=== PATIENT | male | born 1975 | race Caucasian/White ===

== ENCOUNTER 2017-09-25 15:07 | Inpatient (IN) | payer MEDICAID ==
[~2017-09-25] VITALS: Ht 175.3 cm; Wt 71.4 kg
[~2017-09-25 15:07] MED LIST: BENZ1TAB10 PO; RISP3 PO
[2017-09-25] MEDS ORDERED: CITA10TA68 PO (15:15)
[2017-09-25 15:37] LABS: HEMATOCRIT 43.6 % (41-53); MEAN CORPUSCULAR HEMOGLOBIN 30.6 pg (26.0-34.0); MEAN CORPUSCULAR HGB CONC 34.4 G/dL (31.0-37.0); MEAN CORPUSCULAR VOLUME 89 fL (80-100); PLATELET COUNT (AUTO) 191 K/uL (150-450); RED BLOOD CELL COUNT(AUTO) 4.89 MIL/uL (4.50-5.90); RED CELL DISTRIBUTION WIDTH 14.4 % (11.5-14.5)
[2017-09-25 15:47] LABS: ANION GAP 11 mmol/L (8-16); CALCIUM, TOTAL 8.5 mg/dL (8.8-10.5); CARBON DIOXIDE 28 mmol/L (22-29); CHLORIDE 96 mmol/L (98-107); CREATININE 1.09 mg/dL (0.60-1.30); GLOMERULAR FILTR. RATE CALC > 60 mL/min (>60); GLUCOSE,RANDOM 145 mg/dL (70-110); POTASSIUM 3.8 mmol/L (3.5-5.1); SODIUM SERUM 135 mmol/L (136-145); UREA NITROGEN, BLOOD 21 mg/dL (7-18)
[2017-09-25 15:53] LABS: ALANINE AMINOTRANSFERASE 170 U/L (12-78); ALBUMIN 3.2 g/dL (3.4-5.0); ALKALINE PHOSPHATASE 130 U/L (46-116); ASPARTATE AMINOTRANSFERASE 191 U/L (15-37); BILIRUBIN,TOTAL 0.5 mg/dL (0.1-1.0); TOTAL PROTEIN, SERUM 7.5 g/dL (6.4-8.2)
[2017-09-25 16:55] LABS: BAND NEUTROPHILS % (MANUAL) 31 % (1-5); LYMPHOCYTES % (MANUAL) 6 % (22-44); MONOCYTES % (MANUAL) 4 % (2-9); SEGMENTED NEUTROPHILS % 59 % (40-70)
[2017-09-25 19:12] LABS: AMPHET/METH SCREEN,URINE POSITIVE (NEGATIVE); BARBITURATE SCREEN, URINE NEGATIVE (NEGATIVE); BENZODIAZEPINES SCREEN,URINE NEGATIVE (NEGATIVE); CANNABINOID SCREEN,URINE NEGATIVE (NEGATIVE); COCAINE SCREEN,URINE NEGATIVE (NEGATIVE); METHADONE SCREEN, URINE NEGATIVE (NEGATIVE); OPIATE SCREEN,URINE NEGATIVE (NEGATIVE)
[2017-09-25 19:13] LABS: PHENCYCLIDINE SCREEN,URINE NEGATIVE (NEGATIVE)
[2017-09-25] MEDS ORDERED: DiphenhydrAMINE HCL 50 MG/ML VIAL IM ONE (19:15)
[2017-09-25] MEDS ORDERED: LORazepam 2 MG/ML VIAL IM ONE (19:15)
[2017-09-25] MEDS ORDERED: HALOPERIDOL LACTATE 5 MG/ML VIAL IM ONE (19:15)
[2017-09-25] MEDS ORDERED: DiphenhydrAMINE HCL 25 MG CAPSULE PO ONE (19:45)
[2017-09-25] MEDS ORDERED: LORazepam 2 MG TABLET PO ONE (19:45)
[2017-09-25] MEDS ORDERED: HALOPERIDOL 5 MG TABLET PO ONE (19:45)
[2017-09-25] MEDS ORDERED: ZOLPIDEM TARTRATE 10 MG TABLET PO PRN (20:15)
[2017-09-25] MEDS ORDERED: HALOPERIDOL 5 MG TABLET PO PRN (20:15)
[2017-09-25] MEDS ORDERED: LORazepam 2 MG TABLET PO PRN (20:15)
[2017-09-25 21:47] VITALS: BP 113/61
[2017-09-25] MEDS ORDERED: ONDANSETRON HCL 4 MG TABLET PO PRN (22:15)
[2017-09-25] MEDS ORDERED: BENZOCAINE/MENTHOL LOZENGE MM PRN (22:15)
[2017-09-25] MEDS ORDERED: ACETAMINOPHEN 325 MG TABLET PO PRN (22:15)
[2017-09-25] MEDS ORDERED: INFLUENZA VIRUS VACCINE QVS 2017-18 (3YR+)/PF 60 MCG/0.5 ML SYRINGE IM ONE (22:15)
[2017-09-25] MEDS ORDERED: CloNIDine HCL 0.1 MG TABLET PO PRN (22:15)
[2017-09-25] MEDS ORDERED: ALBUTEROL SULFATE HFA 90 MCG/PUFF 8 GM INHALER IH PRN (22:15)
[2017-09-25] MEDS ORDERED: MAGNESIUM HYDROXIDE SUSPENSION 30 ML UDCUP PO PRN (22:15)
[2017-09-25] MEDS ORDERED: BACITRACIN 28.4 GM OINTMENT TP PRN (22:15)
[2017-09-25] MEDS ORDERED: IBUPROFEN 600 MG TABLET PO PRN (22:15)
[2017-09-25] MEDS ORDERED: PETROLATUM,WHITE 71 GM JELLY TP PRN (22:15)
[2017-09-25] MEDS ORDERED: MAG HYDROX/AL HYDROX/SIMETH ES 30 ML SUSPENSION UDCUP PO PRN (22:15)
[2017-09-25] MEDS ORDERED: LOPERAMIDE HCL 2 MG CAPSULE PO PRN (22:15)
[2017-09-26 00:02] VITALS: BP 134/63
[2017-09-26 08:56] LABS: HEMATOCRIT 40.1 % (41-53); HEMOGLOBIN 13.8 g/dL (13.5-17.5); MEAN CORPUSCULAR HEMOGLOBIN 30.2 pg (26.0-34.0); MEAN CORPUSCULAR HGB CONC 34.3 G/dL (31.0-37.0); MEAN CORPUSCULAR VOLUME 88 fL (80-100); PLATELET COUNT (AUTO) 132 K/uL (150-450); RED BLOOD CELL COUNT(AUTO) 4.55 MIL/uL (4.50-5.90); RED CELL DISTRIBUTION WIDTH 14.2 % (11.5-14.5)
[2017-09-26] MEDS ORDERED: CITALOPRAM HYDROBROMIDE 10 MG TABLET PO SCH (09:00)
[2017-09-26 09:14] LABS: CHOL/HDL RATIO 3.5 (4.2-7.3)
[2017-09-26 09:20] LABS: BAND NEUTROPHILS % (MANUAL) 36 % (1-5); LYMPHOCYTES % (MANUAL) 7 % (22-44); MONOCYTES % (MANUAL) 1 % (2-9); SEGMENTED NEUTROPHILS % 56 % (40-70)
[2017-09-26 09:25] LABS: LACTIC ACID 0.6 mmol/L (0.4-2.0)
[2017-09-26] MEDS ORDERED: BENZTROPINE MESYLATE 1 MG TABLET PO SCH (21:00)
[2017-09-26] MEDS ORDERED: RisperiDONE 3 MG TABLET PO SCH (21:00)
== END 2017-09-26 09:24 | disposition home or self-care (01) | DRG 750 ==
LOC: EMS 15:08 → B2S 20:27
PROVIDERS: ADMIT Psychiatry & Neurology Psychiatry; ATTEND Psychiatry & Neurology Psychiatry
DX: F20.9 Schizophrenia, unspecified (principal); F31.9 Bipolar disorder, unspecified; Z79.899 Other long term (current) drug therapy
CPT/HCPCS: 83605; 87081; G0480; J1200; J1630; J2060

== ENCOUNTER 2017-10-18 00:06 | Inpatient (IN) | payer MEDICAID ==
[~2017-10-18] VITALS: Ht 175.3 cm; Wt 68.0 kg
[2017-10-18 00:33] LABS: BASOPHILS % (AUTO) 0.4 % (0.0-2.0); EOSINOPHILS % (AUTO) 0.3 % (1.0-6.0); HEMATOCRIT 41.5 % (41-53); HEMOGLOBIN 14.5 g/dL (13.5-17.5); LYMPHOCYTES # (AUTO) 1.5 K/uL (1.0-4.8); LYMPHOCYTES % (AUTO) 11.7 % (22.0-44.0); MEAN CORPUSCULAR HEMOGLOBIN 30.3 pg (26.0-34.0); MEAN CORPUSCULAR HGB CONC 34.9 G/dL (31.0-37.0); MEAN CORPUSCULAR VOLUME 87 fL (80-100); MONOCYTES # (AUTO) 1.1 K/uL (0.1-1.0); MONOCYTES % (AUTO) 8.5 % (2.0-9.0); NEUTROPHILS # (AUTO) 10.1 K/uL (1.8-7.7); NEUTROPHILS % (AUTO) 79.1 % (40.0-70.0); PLATELET COUNT (AUTO) 425 K/uL (150-450); RED BLOOD CELL COUNT(AUTO) 4.79 MIL/uL (4.50-5.90); RED CELL DISTRIBUTION WIDTH 14.7 % (11.5-14.5)
[2017-10-18 00:38] LABS: ANION GAP 16 mmol/L (8-16); CALCIUM, TOTAL 9.7 mg/dL (8.8-10.5); CARBON DIOXIDE 25 mmol/L (22-29); CHLORIDE 97 mmol/L (98-107); CREATININE 1.23 mg/dL (0.60-1.30); GLOMERULAR FILTR. RATE CALC > 60 mL/min (>60); GLUCOSE,RANDOM 102 mg/dL (70-110); POTASSIUM 3.7 mmol/L (3.5-5.1); SODIUM SERUM 138 mmol/L (136-145); UREA NITROGEN, BLOOD 27 mg/dL (7-18)
[2017-10-18 00:44] LABS: ALANINE AMINOTRANSFERASE 57 U/L (12-78); ALBUMIN 4.1 g/dL (3.4-5.0); ALKALINE PHOSPHATASE 154 U/L (46-116); ASPARTATE AMINOTRANSFERASE 163 U/L (15-37)
[2017-10-18] MEDS ORDERED: ZOLPIDEM TARTRATE 10 MG TABLET PO PRN (02:00)
[2017-10-18] MEDS ORDERED: HALOPERIDOL 5 MG TABLET PO PRN (02:00)
[2017-10-18] MEDS ORDERED: LORazepam 2 MG TABLET PO PRN (02:00)
[2017-10-18] MEDS ORDERED: DiphenhydrAMINE HCL 50 MG/ML VIAL IM ONE (02:00)
[2017-10-18] MEDS ORDERED: HALOPERIDOL LACTATE 5 MG/ML VIAL IM ONE (02:00)
[2017-10-18] MEDS ORDERED: LORazepam 2 MG/ML VIAL IM ONE (02:00)
[2017-10-18 05:33] VITALS: BP 100/57
[2017-10-18] MEDS ORDERED: MAGNESIUM HYDROXIDE SUSPENSION 30 ML UDCUP PO PRN (09:30)
[2017-10-18] MEDS ORDERED: ALBUTEROL SULFATE HFA 90 MCG/PUFF 8 GM INHALER IH PRN (09:30)
[2017-10-18] MEDS ORDERED: BACITRACIN 28.4 GM OINTMENT TP PRN (09:30)
[2017-10-18] MEDS ORDERED: PETROLATUM,WHITE 71 GM JELLY TP PRN (09:30)
[2017-10-18] MEDS ORDERED: IBUPROFEN 600 MG TABLET PO PRN (09:30)
[2017-10-18] MEDS ORDERED: BENZOCAINE/MENTHOL LOZENGE MM PRN (09:30)
[2017-10-18] MEDS ORDERED: CloNIDine HCL 0.1 MG TABLET PO PRN (09:30)
[2017-10-18] MEDS ORDERED: LOPERAMIDE HCL 2 MG CAPSULE PO PRN (09:30)
[2017-10-18] MEDS ORDERED: ONDANSETRON HCL 4 MG TABLET PO PRN (09:30)
[2017-10-18] MEDS ORDERED: MAG HYDROX/AL HYDROX/SIMETH ES 30 ML SUSPENSION UDCUP PO PRN (09:30)
[2017-10-18] MEDS ORDERED: ACETAMINOPHEN 325 MG TABLET PO PRN (09:30)
[2017-10-18 10:00] VITALS: BP 114/54
[2017-10-18] MEDS: BENZTROPINE MESYLATE 1 MG TABLET PO SCH (20:45)
[2017-10-18] MEDS: RisperiDONE 3 MG TABLET PO SCH (20:45)
[2017-10-18 21:06] VITALS: BP 126/76
[2017-10-19 06:42] LABS: CHOL/HDL RATIO 3.1 (4.2-7.3)
[2017-10-19 08:24] VITALS: BP 116/74
[2017-10-19] MEDS: CITALOPRAM HYDROBROMIDE 10 MG TABLET PO SCH (10:15)
[2017-10-19] MEDS: RisperiDONE 3 MG TABLET PO SCH (20:00)
[2017-10-19] MEDS: BENZTROPINE MESYLATE 1 MG TABLET PO SCH (20:01)
[2017-10-19 20:19] VITALS: BP 112/75
[2017-10-20 08:05] VITALS: BP 125/79
[2017-10-20] MEDS: CITALOPRAM HYDROBROMIDE 10 MG TABLET PO SCH (10:51)
[2017-10-20] MEDS: RisperiDONE 3 MG TABLET PO SCH (20:22)
[2017-10-20] MEDS: BENZTROPINE MESYLATE 1 MG TABLET PO SCH (20:23)
[2017-10-20 21:29] VITALS: BP 110/78
[2017-10-21 08:05] VITALS: BP 116/88
[2017-10-21] MEDS: CITALOPRAM HYDROBROMIDE 10 MG TABLET PO SCH (10:29)
[2017-10-21] MEDS ORDERED: CITA10TA68 PO (13:50)
[2017-10-21] MEDS ORDERED: BENZ1TAB10 PO (13:50)
[2017-10-21] MEDS ORDERED: RISP3 PO (13:51)
== END 2017-10-21 15:00 | disposition home or self-care (01) | DRG 750 ==
LOC: EMS 00:07 → 3EI 04:30
PROVIDERS: ADMIT Psychiatry & Neurology Psychiatry; ATTEND Psychiatry & Neurology Psychiatry
DX: F20.0 Paranoid schizophrenia (principal); R74.0 Nonspecific elevation of levels of transaminase and lactic acid dehydrogenase [LDH]; F32.9 Major depressive disorder, single episode, unspecified; Z59.0 Homelessness; G47.00 Insomnia, unspecified; F17.200 Nicotine dependence, unspecified, uncomplicated; F15.10 Other stimulant abuse, uncomplicated; R03.0 Elevated blood-pressure reading, without diagnosis of hypertension; D72.829 Elevated white blood cell count, unspecified; Z71.6 Tobacco abuse counseling; Z71.51 Drug abuse counseling and surveillance of drug abuser
CPT/HCPCS: 87081; 96372; 99285; G0480; J1200; J1630; J2060

== ENCOUNTER 2017-11-13 22:39 | Emergency (ER) | payer MEDICAID ==
[~2017-11-13 22:39] MED LIST changes: +DSS100 PO; +OMEP20 PO; +RISP2 PO; -RISP3 PO
== END 2017-11-14 00:56 | disposition left against medical advice (07) ==
LOC: EMS 22:40
DX: R00.0 Tachycardia, unspecified (principal); Z53.21 Procedure and treatment not carried out due to patient leaving prior to being seen by health care provider

== ENCOUNTER 2017-11-14 03:26 | Emergency (ER) | payer MEDICAID ==
[~2017-11-14] VITALS: Ht 175.3 cm; Wt 68.7 kg
[2017-11-14] MEDS ORDERED: MUPIROCIN CALCIUM 2% 22 GM OINTMENT TP ONE (04:15)
[2017-11-14] MEDS ORDERED: HALOPERIDOL LACTATE 5 MG/ML VIAL IM ONE (04:15)
[2017-11-14] MEDS ORDERED: LORazepam 2 MG/ML VIAL IM ONE (04:15)
[2017-11-14] MEDS ORDERED: DiphenhydrAMINE HCL 50 MG/ML VIAL IM ONE (04:15)
[2017-11-14 05:34] LABS: BASOPHILS % (AUTO) 0.5 % (0.0-2.0); EOSINOPHILS % (AUTO) 0 % (1.0-6.0); HEMATOCRIT 38.5 % (41-53); HEMOGLOBIN 13.3 g/dL (13.5-17.5); LYMPHOCYTES # (AUTO) 1.5 K/uL (1.0-4.8); LYMPHOCYTES % (AUTO) 8.7 % (22.0-44.0); MEAN CORPUSCULAR HEMOGLOBIN 29.9 pg (26.0-34.0); MEAN CORPUSCULAR HGB CONC 34.6 G/dL (31.0-37.0); MEAN CORPUSCULAR VOLUME 87 fL (80-100); MONOCYTES # (AUTO) 1.3 K/uL (0.1-1.0); MONOCYTES % (AUTO) 7.4 % (2.0-9.0); NEUTROPHILS # (AUTO) 14.5 K/uL (1.8-7.7); NEUTROPHILS % (AUTO) 83.4 % (40.0-70.0); PLATELET COUNT (AUTO) 387 K/uL (150-450); RED BLOOD CELL COUNT(AUTO) 4.45 MIL/uL (4.50-5.90); RED CELL DISTRIBUTION WIDTH 15.2 % (11.5-14.5)
[2017-11-14 05:41] LABS: ANION GAP 16 mmol/L (8-16); CALCIUM, TOTAL 9.3 mg/dL (8.8-10.5); CARBON DIOXIDE 20 mmol/L (22-29); CHLORIDE 101 mmol/L (98-107); CREATININE 1.91 mg/dL (0.60-1.30); GLOMERULAR FILTR. RATE CALC 39 mL/min (>60); GLUCOSE,RANDOM 79 mg/dL (70-110); POTASSIUM 3.6 mmol/L (3.5-5.1); SODIUM SERUM 137 mmol/L (136-145); UREA NITROGEN, BLOOD 37 mg/dL (7-18)
[2017-11-14 05:51] LABS: ALANINE AMINOTRANSFERASE 26 U/L (12-78); ALBUMIN 4.2 g/dL (3.4-5.0); ALKALINE PHOSPHATASE 73 U/L (46-116); ASPARTATE AMINOTRANSFERASE 47 U/L (15-37); BILIRUBIN,TOTAL 0.7 mg/dL (0.1-1.0); TOTAL PROTEIN, SERUM 7.9 g/dL (6.4-8.2)
[2017-11-14 08:13] VITALS: BP 102/61
== END 2017-11-14 09:09 | disposition home or self-care (01) ==
LOC: EMS 03:27
DX: F29 Unspecified psychosis not due to a substance or known physiological condition (principal); N19 Unspecified kidney failure; F22 Delusional disorders; F31.9 Bipolar disorder, unspecified; F20.9 Schizophrenia, unspecified; F15.90 Other stimulant use, unspecified, uncomplicated; Z59.0 Homelessness
CPT/HCPCS: 36415; 80053; 85025; 96372; 99285; G0480; J1200; J1630; J2060

== ENCOUNTER 2017-12-26 08:52 | Inpatient (IN) | payer MEDICAID ==
[~2017-12-26] VITALS: Ht 177.8 cm; Wt 63.5 kg
[2017-12-26] MEDS ORDERED: HALOPERIDOL LACTATE 5 MG/ML VIAL IM ONE (09:15)
[2017-12-26] MEDS ORDERED: DiphenhydrAMINE HCL 50 MG/ML VIAL IM ONE (09:15)
[2017-12-26] MEDS ORDERED: LORazepam 2 MG/ML VIAL IM ONE (09:15)
[2017-12-26 09:32] LABS: BASOPHILS % (AUTO) 1.4 % (0.0-2.0); EOSINOPHILS % (AUTO) 0.7 % (1.0-6.0); HEMOGLOBIN 13.3 g/dL (13.5-17.5); LYMPHOCYTES # (AUTO) 1.3 K/uL (1.0-4.8); MEAN CORPUSCULAR HEMOGLOBIN 30.1 pg (26.0-34.0); MEAN CORPUSCULAR HGB CONC 34.1 G/dL (31.0-37.0); MEAN CORPUSCULAR VOLUME 88 fL (80-100); MONOCYTES # (AUTO) 0.6 K/uL (0.1-1.0); MONOCYTES % (AUTO) 6.2 % (2.0-9.0); NEUTROPHILS % (AUTO) 78.7 % (40.0-70.0); PLATELET COUNT (AUTO) 415 K/uL (150-450); RED BLOOD CELL COUNT(AUTO) 4.42 MIL/uL (4.50-5.90); RED CELL DISTRIBUTION WIDTH 15.9 % (11.5-14.5)
[2017-12-26 09:48] LABS: ANION GAP 8 mmol/L (8-16); CALCIUM, TOTAL 9.1 mg/dL (8.8-10.5); CARBON DIOXIDE 29 mmol/L (22-29); CHLORIDE 100 mmol/L (98-107); CREATININE 1.04 mg/dL (0.60-1.30); GLOMERULAR FILTR. RATE CALC > 60 mL/min (>60); GLUCOSE,RANDOM 82 mg/dL (70-110); POTASSIUM 4.3 mmol/L (3.5-5.1); SODIUM SERUM 137 mmol/L (136-145); UREA NITROGEN, BLOOD 28 mg/dL (7-18)
[2017-12-26 09:54] LABS: ALANINE AMINOTRANSFERASE 33 U/L (12-78); ALBUMIN 3.9 g/dL (3.4-5.0); ALKALINE PHOSPHATASE 89 U/L (46-116); ASPARTATE AMINOTRANSFERASE 37 U/L (15-37); BILIRUBIN,TOTAL 0.5 mg/dL (0.1-1.0); TOTAL PROTEIN, SERUM 7.7 g/dL (6.4-8.2)
[2017-12-26] MEDS ORDERED: LORazepam 2 MG TABLET PO PRN (10:15)
[2017-12-26] MEDS ORDERED: ZOLPIDEM TARTRATE 10 MG TABLET PO PRN ×2 (10:15→12:00)
[2017-12-26] MEDS ORDERED: HALOPERIDOL 5 MG TABLET PO PRN (10:15)
[2017-12-26 11:29] LABS: AMPHET/METH SCREEN,URINE POSITIVE (NEGATIVE); BARBITURATE SCREEN, URINE NEGATIVE (NEGATIVE); BENZODIAZEPINES SCREEN,URINE NEGATIVE (NEGATIVE); CANNABINOID SCREEN,URINE NEGATIVE (NEGATIVE); COCAINE SCREEN,URINE NEGATIVE (NEGATIVE); METHADONE SCREEN, URINE NEGATIVE (NEGATIVE); OPIATE SCREEN,URINE NEGATIVE (NEGATIVE); PHENCYCLIDINE SCREEN,URINE NEGATIVE (NEGATIVE)
[2017-12-26 16:00] VITALS: BP 112/68
[2017-12-26] MEDS: RisperiDONE 2 MG TABLET PO SCH (16:20)
[2017-12-26] MEDS: BENZTROPINE MESYLATE 1 MG TABLET PO SCH (16:20)
[2017-12-26] MEDS ORDERED: ONDANSETRON HCL 4 MG TABLET PO PRN (18:15)
[2017-12-26] MEDS ORDERED: CloNIDine HCL 0.1 MG TABLET PO PRN (18:15)
[2017-12-26] MEDS ORDERED: MAG HYDROX/AL HYDROX/SIMETH ES 30 ML SUSPENSION UDCUP PO PRN (18:15)
[2017-12-26] MEDS ORDERED: PETROLATUM,WHITE 71 GM JELLY TP PRN (18:15)
[2017-12-26] MEDS ORDERED: MAGNESIUM HYDROXIDE SUSPENSION 30 ML UDCUP PO PRN (18:15)
[2017-12-26] MEDS ORDERED: IBUPROFEN 600 MG TABLET PO PRN (18:15)
[2017-12-26] MEDS ORDERED: BENZOCAINE/MENTHOL LOZENGE MM PRN (18:15)
[2017-12-26] MEDS ORDERED: ACETAMINOPHEN 325 MG TABLET PO PRN (18:15)
[2017-12-26] MEDS ORDERED: ALBUTEROL SULFATE HFA 90 MCG/PUFF 8 GM INHALER IH PRN (18:15)
[2017-12-26] MEDS ORDERED: LOPERAMIDE HCL 2 MG CAPSULE PO PRN (18:15)
[2017-12-26] MEDS ORDERED: BACITRACIN 28.4 GM OINTMENT TP PRN (18:15)
[2017-12-27 06:22] VITALS: BP 109/62
[2017-12-27 08:00] LABS: % IRON SATURATION 16.3 % (30-44)
[2017-12-27 08:10] VITALS: BP 113/58
[2017-12-27 08:13] LABS: CHOL/HDL RATIO 2.2 (4.2-7.3); THYROID STIMULATING HORMONE 0.47 uIU/mL (0.36-3.74)
[2017-12-27] MEDS: OMEPRAZOLE 20 MG CAPSULE PO SCH (08:30)
[2017-12-27] MEDS: DOCUSATE SODIUM 100 MG CAPSULE PO SCH (08:30)
[2017-12-27] MEDS: BENZTROPINE MESYLATE 1 MG TABLET PO SCH ×2 (08:30→16:34)
[2017-12-27] MEDS: RisperiDONE 2 MG TABLET PO SCH ×2 (08:30→16:34)
[2017-12-27 16:00] VITALS: BP 124/69
[2017-12-28 06:26] VITALS: BP 124/67
[2017-12-28 08:11] VITALS: BP 110/60
[2017-12-28] MEDS: BENZTROPINE MESYLATE 1 MG TABLET PO SCH ×2 (09:40→16:23)
[2017-12-28] MEDS: OMEPRAZOLE 20 MG CAPSULE PO SCH (09:40)
[2017-12-28] MEDS: RisperiDONE 2 MG TABLET PO SCH ×2 (09:40→16:23)
[2017-12-28] MEDS: DOCUSATE SODIUM 100 MG CAPSULE PO SCH (09:40)
[2017-12-28 16:00] VITALS: BP 112/78
[2017-12-28] MEDS: FERROUS SULFATE 325 MG EC TABLET PO SCH (16:23)
[2017-12-28] MEDS: HALOPERIDOL 5 MG TABLET PO PRN (16:23)
[2017-12-28] MEDS: LORazepam 2 MG TABLET PO PRN (16:23)
[2017-12-29 06:28] VITALS: BP 103/69
[2017-12-29] MEDS: FERROUS SULFATE 325 MG EC TABLET PO SCH ×2 (06:28→16:53)
[2017-12-29 08:00] VITALS: BP 110/67
[2017-12-29] MEDS: RisperiDONE 2 MG TABLET PO SCH ×2 (09:15→16:53)
[2017-12-29] MEDS: OMEPRAZOLE 20 MG CAPSULE PO SCH (09:15)
[2017-12-29] MEDS: HALOPERIDOL 5 MG TABLET PO PRN ×2 (09:15→16:53)
[2017-12-29] MEDS: DOCUSATE SODIUM 100 MG CAPSULE PO SCH (09:16)
[2017-12-29] MEDS: LORazepam 2 MG TABLET PO PRN ×2 (09:16→16:53)
[2017-12-29] MEDS: BENZTROPINE MESYLATE 1 MG TABLET PO SCH ×2 (09:16→16:53)
[2017-12-29 16:00] VITALS: BP 126/88
[2017-12-30 03:19] VITALS: BP 122/76
[2017-12-30] MEDS: FERROUS SULFATE 325 MG EC TABLET PO SCH ×2 (06:36→16:26)
[2017-12-30 08:31] VITALS: BP 117/59
[2017-12-30] MEDS: DOCUSATE SODIUM 100 MG CAPSULE PO SCH (09:30)
[2017-12-30] MEDS: RisperiDONE 2 MG TABLET PO SCH ×2 (09:30→16:25)
[2017-12-30] MEDS: CHOLECALCIFEROL (VIT D3) 1,000 UNITS TABLET PO SCH (09:30)
[2017-12-30] MEDS: BENZTROPINE MESYLATE 1 MG TABLET PO SCH ×2 (09:30→16:26)
[2017-12-30] MEDS: OMEPRAZOLE 20 MG CAPSULE PO SCH (09:30)
[2017-12-30 16:00] VITALS: BP 135/89
[2017-12-30] MEDS: HALOPERIDOL 5 MG TABLET PO PRN (16:26)
[2017-12-30] MEDS: LORazepam 2 MG TABLET PO PRN (16:26)
[2017-12-31] MEDS: FERROUS SULFATE 325 MG EC TABLET PO SCH (06:24)
[2017-12-31 08:26] VITALS: BP 127/81
[2017-12-31] MEDS ORDERED: RISP2 PO (09:01)
[2017-12-31] MEDS ORDERED: BENZ1TAB10 PO (09:01)
[2017-12-31] MEDS: OMEPRAZOLE 20 MG CAPSULE PO SCH (09:14)
[2017-12-31] MEDS: BENZTROPINE MESYLATE 1 MG TABLET PO SCH (09:14)
[2017-12-31] MEDS: DOCUSATE SODIUM 100 MG CAPSULE PO SCH (09:14)
[2017-12-31] MEDS: CHOLECALCIFEROL (VIT D3) 1,000 UNITS TABLET PO SCH (09:14)
[2017-12-31] MEDS: RisperiDONE 2 MG TABLET PO SCH (09:14)
[2017-12-31] MEDS ORDERED: FERR-89 PO (09:54)
[2017-12-31] MEDS ORDERED: VITAD1000 PO (09:54)
[2017-12-31] MEDS ORDERED: OMEP20 PO (09:55)
[2017-12-31] MEDS ORDERED: DSS100 PO (09:55)
== END 2017-12-31 13:15 | disposition home or self-care (01) | DRG 750 ==
LOC: EMS 08:53 → B3A 11:04
PROVIDERS: ADMIT Psychiatry & Neurology Child & Adolescent Psychiatry; ATTEND Psychiatry & Neurology Psychiatry
DX: F25.0 Schizoaffective disorder, bipolar type (principal); F15.20 Other stimulant dependence, uncomplicated; F17.210 Nicotine dependence, cigarettes, uncomplicated; F41.9 Anxiety disorder, unspecified; D64.9 Anemia, unspecified; E55.9 Vitamin D deficiency, unspecified; G47.00 Insomnia, unspecified; Z59.0 Homelessness; Z78.1 Physical restraint status; Z91.19 Patient's noncompliance with other medical treatment and regimen; Z72.89 Other problems related to lifestyle; Z79.899 Other long term (current) drug therapy; Z71.6 Tobacco abuse counseling; Z71.41 Alcohol abuse counseling and surveillance of alcoholic; Z71.51 Drug abuse counseling and surveillance of drug abuser
CPT/HCPCS: 82306; 83540; 83550; 84443; 96372; 99291; G0480; J1200; J1630; J2060

== ENCOUNTER 2019-09-30 17:05 | Emergency (ER) | payer MEDICAID ==
[~2019-09-30] VITALS: Ht 175.3 cm; Wt 63.6 kg
[~2019-09-30 17:05] MED LIST changes: +CHOL100018 PO; -DSS100 PO; +FERR-89 PO; +MULT-1204 PO; -OMEP20 PO
[2019-09-30 19:22] LABS: BASOPHILS % (AUTO) 0.2 % (0.0-2.0); EOSINOPHILS % (AUTO) 0.2 % (1.0-6.0); HEMATOCRIT 44.5 % (41-53); HEMOGLOBIN 15.1 g/dL (13.5-17.5); LYMPHOCYTES % (AUTO) 7.8 % (22.0-44.0); MEAN CORPUSCULAR HEMOGLOBIN 31.2 pg (26.0-34.0); MEAN CORPUSCULAR HGB CONC 33.9 G/dL (31.0-37.0); MEAN CORPUSCULAR VOLUME 92 fL (80-100); MONOCYTES # (AUTO) 0.7 K/uL (0.1-1.0); MONOCYTES % (AUTO) 5.5 % (2.0-9.0); NEUTROPHILS # (AUTO) 11.1 K/uL (1.8-7.7); PLATELET COUNT (AUTO) 408 K/uL (150-450); RED BLOOD CELL COUNT(AUTO) 4.83 MIL/uL (4.50-5.90); RED CELL DISTRIBUTION WIDTH 13.9 % (11.5-14.5)
[2019-09-30 19:27] LABS: NEUTROPHILS % (AUTO) 86.3 % (40.0-70.0)
[2019-09-30 19:34] LABS: ANION GAP 7 mmol/L (8-16); CALCIUM, TOTAL 9.4 mg/dL (8.8-10.5); CARBON DIOXIDE 29 mmol/L (22-29); CHLORIDE 101 mmol/L (98-107); CREATININE 1.07 mg/dL (0.60-1.30); GLOMERULAR FILTR. RATE CALC > 60 mL/min (>60); GLUCOSE,RANDOM 85 mg/dL (70-110); POTASSIUM 4.4 mmol/L (3.5-5.1); SODIUM SERUM 137 mmol/L (136-145); UREA NITROGEN, BLOOD 29 mg/dL (7-18)
[2019-09-30 19:41] LABS: ALANINE AMINOTRANSFERASE 28 U/L (12-78); ALBUMIN 4.4 g/dL (3.4-5.0); ALKALINE PHOSPHATASE 105 U/L (46-116); ASPARTATE AMINOTRANSFERASE 32 U/L (15-37); BILIRUBIN,TOTAL 1.1 mg/dL (0.1-1.0); TOTAL PROTEIN, SERUM 8.3 g/dL (6.4-8.2)
[2019-09-30 20:28] VITALS: BP 139/78
[2019-09-30 20:30] LABS: AMPHET/METH SCREEN,URINE POSITIVE (NEGATIVE); BARBITURATE SCREEN, URINE NEGATIVE (NEGATIVE); BENZODIAZEPINES SCREEN,URINE NEGATIVE (NEGATIVE); CANNABINOID SCREEN,URINE NEGATIVE (NEGATIVE); COCAINE SCREEN,URINE NEGATIVE (NEGATIVE); METHADONE SCREEN, URINE NEGATIVE (NEGATIVE); OPIATE SCREEN,URINE NEGATIVE (NEGATIVE)
[2019-09-30 20:43] LABS: PHENCYCLIDINE SCREEN,URINE NEGATIVE (NEGATIVE)
[2019-09-30] MEDS ORDERED: OLANZapine 5 MG TABLET PO ONE (21:00)
== END 2019-09-30 21:11 | disposition home or self-care (01) ==
LOC: EMS 17:08
DX: F15.10 Other stimulant abuse, uncomplicated (principal); F31.9 Bipolar disorder, unspecified; F20.9 Schizophrenia, unspecified; F17.210 Nicotine dependence, cigarettes, uncomplicated; Z59.0 Homelessness; Z79.899 Other long term (current) drug therapy
CPT/HCPCS: 36415; 80053; 80307; 85025; 99285; 99406; G0480

== ENCOUNTER 2019-12-11 12:57 | Emergency (ER) | payer MEDICAID ==
[~2019-12-11] VITALS: Ht 185.4 cm; Wt 72.7 kg
[~2019-12-11 12:57] MED LIST changes: -RISP2 PO; +RISP2TAB23 PO
[2019-12-11 14:29] LABS: BASOPHILS % (AUTO) 0.6 % (0.0-2.0); EOSINOPHILS % (AUTO) 3.5 % (1.0-6.0); HEMATOCRIT 38.5 % (41-53); HEMOGLOBIN 13.1 g/dL (13.5-17.5); LYMPHOCYTES # (AUTO) 1.4 K/uL (1.0-4.8); MEAN CORPUSCULAR HEMOGLOBIN 30.9 pg (26.0-34.0); MEAN CORPUSCULAR VOLUME 91 fL (80-100); MONOCYTES # (AUTO) 0.4 K/uL (0.1-1.0); NEUTROPHILS # (AUTO) 3.5 K/uL (1.8-7.7); NEUTROPHILS % (AUTO) 63.9 % (40.0-70.0); PLATELET COUNT (AUTO) 344 K/uL (150-450); RED BLOOD CELL COUNT(AUTO) 4.24 MIL/uL (4.50-5.90)
[2019-12-11 14:41] LABS: ANION GAP 7 mmol/L (8-16); CALCIUM, TOTAL 8.9 mg/dL (8.8-10.5); CARBON DIOXIDE 29 mmol/L (22-29); CHLORIDE 104 mmol/L (98-107); CREATININE 0.97 mg/dL (0.60-1.30); GLOMERULAR FILTR. RATE CALC > 60 mL/min (>60); GLUCOSE,RANDOM 91 mg/dL (70-110); POTASSIUM 3.9 mmol/L (3.5-5.1); SODIUM SERUM 140 mmol/L (136-145); UREA NITROGEN, BLOOD 23 mg/dL (7-18)
[2019-12-11 14:46] LABS: AMMONIA 33 umol/L (11-32)
[2019-12-11 14:47] LABS: B-TYPE NATRIURETIC PEPTIDE 10 pg/mL (0-100); TROPONIN I < 0.02 ng/mL (0.00-0.05)
[2019-12-11 14:50] LABS: PROTHROMBIN TIME 10.3 SEC (9.4-11.6)
[2019-12-11 15:05] LABS: ALANINE AMINOTRANSFERASE 28 U/L (12-78); ALBUMIN 3.7 g/dL (3.4-5.0); ALKALINE PHOSPHATASE 76 U/L (46-116); ASPARTATE AMINOTRANSFERASE 24 U/L (15-37); BILIRUBIN,TOTAL 0.5 mg/dL (0.1-1.0); CREATINE KINASE, TOTAL ONLY 415 U/L (39-308); FREE T4 (FREE THYROXINE) 1.12 ng/dL (0.76-1.46); THYROID STIMULATING HORMONE 1.41 uIU/mL (0.36-3.74); TOTAL PROTEIN, SERUM 7.2 g/dL (6.4-8.2)
[2019-12-11] MEDS ORDERED: SODIUM CHLORIDE 0.9% 1,000 ML IV ONE (15:45)
[2019-12-11 16:56] LABS: APPEARANCE,URINE CLEAR (CLEAR); BILIRUBIN,URINE NEGATIVE (NEGATIVE); GLUCOSE, URINE (UA) NEGATIVE (NEGATIVE); KETONES,URINE NEGATIVE (NEGATIVE); LEUKOCYTE ESTERASE ,URINE NEGATIVE (NEGATIVE); NITRATE,URINE NEGATIVE (NEGATIVE); OCCULT BLOOD,URINE NEGATIVE (NEGATIVE); PROTEIN,URINE NEGATIVE (NEGATIVE)
[2019-12-11 17:02] LABS: AMPHET/METH SCREEN,URINE POSITIVE (NEGATIVE); BARBITURATE SCREEN, URINE NEGATIVE (NEGATIVE); BENZODIAZEPINES SCREEN,URINE POSITIVE (NEGATIVE); CANNABINOID SCREEN,URINE NEGATIVE (NEGATIVE); COCAINE SCREEN,URINE NEGATIVE (NEGATIVE); METHADONE SCREEN, URINE NEGATIVE (NEGATIVE); OPIATE SCREEN,URINE NEGATIVE (NEGATIVE); PHENCYCLIDINE SCREEN,URINE NEGATIVE (NEGATIVE)
[2019-12-11 17:57] VITALS: BP 126/72
== END 2019-12-11 17:59 | disposition home or self-care (01) ==
LOC: EMS 12:58
DX: F29 Unspecified psychosis not due to a substance or known physiological condition (principal); F15.10 Other stimulant abuse, uncomplicated; R79.89 Other specified abnormal findings of blood chemistry; F31.9 Bipolar disorder, unspecified; F20.9 Schizophrenia, unspecified; F17.210 Nicotine dependence, cigarettes, uncomplicated; Z59.0 Homelessness
CPT/HCPCS: 36415; 71045; 80053; 80307; 81003; 82140; 82550; 83880; 84439; 84443; 84484; 85025; 85610; 85730; 93005; 99285; G0480

== ENCOUNTER 2020-09-07 12:05 | Emergency (ER) | payer MEDICAID ==
[~2020-09-07] VITALS: Ht 172.7 cm; Wt 70.5 kg
[~2020-09-07 12:05] MED LIST changes: -RISP2TAB23 PO; +RISP2TAB45 PO
[2020-09-07] MEDS ORDERED: DiphenhydrAMINE HCL 50 MG/ML VIAL IM ONE (12:30)
[2020-09-07] MEDS ORDERED: LORazepam 2 MG/ML VIAL IM ONE (12:30)
[2020-09-07] MEDS ORDERED: HALOPERIDOL LACTATE 5 MG/ML VIAL IM ONE (12:30)
[2020-09-07 16:13] LABS: BASOPHILS % (AUTO) 0.8 % (0.0-2.0); EOSINOPHILS % (AUTO) 0.6 % (1.0-6.0); HEMATOCRIT 41.3 % (41-53); HEMOGLOBIN 13.9 g/dL (13.5-17.5); LYMPHOCYTES # (AUTO) 1.3 K/uL (1.0-4.8); LYMPHOCYTES % (AUTO) 15.7 % (22.0-44.0); MEAN CORPUSCULAR HEMOGLOBIN 30.7 pg (26.0-34.0); MEAN CORPUSCULAR HGB CONC 33.8 G/dL (31.0-37.0); MEAN CORPUSCULAR VOLUME 91 fL (80-100); MONOCYTES # (AUTO) 0.5 K/uL (0.1-1.0); MONOCYTES % (AUTO) 5.6 % (2.0-9.0); NEUTROPHILS # (AUTO) 6.7 K/uL (1.8-7.7); NEUTROPHILS % (AUTO) 77.3 % (40.0-70.0); PLATELET COUNT (AUTO) 371 K/uL (150-450); RED BLOOD CELL COUNT(AUTO) 4.54 MIL/uL (4.50-5.90); RED CELL DISTRIBUTION WIDTH 14.1 % (11.5-14.5)
[2020-09-07 16:18] LABS: COVID AG,FIA SOURCE NASOPHARYNGEAL
[2020-09-07 16:28] VITALS: BP 114/70
[2020-09-07 16:31] LABS: ANION GAP 8 mmol/L (8-16); CALCIUM, TOTAL 9.2 mg/dL (8.8-10.5); CARBON DIOXIDE 28 mmol/L (22-29); CHLORIDE 104 mmol/L (98-107); CREATININE 1.06 mg/dL (0.60-1.30); GLOMERULAR FILTR. RATE CALC > 60 mL/min (>60); GLUCOSE,RANDOM 90 mg/dL (70-110); POTASSIUM 3.9 mmol/L (3.5-5.1); SODIUM SERUM 140 mmol/L (136-145); UREA NITROGEN, BLOOD 24 mg/dL (7-18)
[2020-09-07 16:37] LABS: ALANINE AMINOTRANSFERASE 26 U/L (12-78); ALBUMIN 3.5 g/dL (3.4-5.0); ALKALINE PHOSPHATASE 89 U/L (46-116); ASPARTATE AMINOTRANSFERASE 27 U/L (15-37); BILIRUBIN,TOTAL 0.2 mg/dL (0.1-1.0); TOTAL PROTEIN, SERUM 7.3 g/dL (6.4-8.2)
== END 2020-09-07 17:48 | disposition home or self-care (01) ==
LOC: EMS 12:09
DX: F20.9 Schizophrenia, unspecified (principal); F15.10 Other stimulant abuse, uncomplicated; F17.210 Nicotine dependence, cigarettes, uncomplicated; Z59.0 Homelessness; Z20.822 Contact with and (suspected) exposure to COVID-19
CPT/HCPCS: 80053; 85025; 87426; 96372; 99291; G0480; J1200; J1630; J2060

== ENCOUNTER 2020-12-09 22:12 | Emergency (ER) | payer MEDICAID ==
[~2020-12-09] VITALS: Ht 175.3 cm; Wt 68.2 kg
[2020-12-09 22:58] LABS: BASOPHILS % (AUTO) 0.7 % (0.0-2.0); EOSINOPHILS % (AUTO) 2.1 % (1.0-6.0); HEMATOCRIT 42.6 % (41-53); HEMOGLOBIN 14.4 g/dL (13.5-17.5); LYMPHOCYTES # (AUTO) 1.2 K/uL (1.0-4.8); LYMPHOCYTES % (AUTO) 19.5 % (22.0-44.0); MEAN CORPUSCULAR HGB CONC 33.8 G/dL (31.0-37.0); MEAN CORPUSCULAR VOLUME 92 fL (80-100); MONOCYTES # (AUTO) 0.4 K/uL (0.1-1.0); NEUTROPHILS # (AUTO) 4.2 K/uL (1.8-7.7); NEUTROPHILS % (AUTO) 70.7 % (40.0-70.0); PLATELET COUNT (AUTO) 352 K/uL (150-450); RED BLOOD CELL COUNT(AUTO) 4.65 MIL/uL (4.50-5.90); RED CELL DISTRIBUTION WIDTH 14.4 % (11.5-14.5)
[2020-12-09 23:08] LABS: ANION GAP 7 mmol/L (8-16); CALCIUM, TOTAL 8.9 mg/dL (8.8-10.5); CARBON DIOXIDE 30 mmol/L (22-29); CHLORIDE 107 mmol/L (98-107); CREATININE 1.14 mg/dL (0.60-1.30); GLOMERULAR FILTR. RATE CALC > 60 mL/min (>60); GLUCOSE,RANDOM 120 mg/dL (70-110); POTASSIUM 3.7 mmol/L (3.5-5.1); SODIUM SERUM 144 mmol/L (136-145); UREA NITROGEN, BLOOD 26 mg/dL (7-18)
[2020-12-09 23:12] LABS: ALANINE AMINOTRANSFERASE 45 U/L (12-78); ALBUMIN 3.6 g/dL (3.4-5.0); ALKALINE PHOSPHATASE 86 U/L (46-116); ASPARTATE AMINOTRANSFERASE 50 U/L (15-37); BILIRUBIN,TOTAL 0.5 mg/dL (0.1-1.0); LIPASE 75 U/L (73-393); TOTAL PROTEIN, SERUM 6.8 g/dL (6.4-8.2)
[2020-12-10 01:36] VITALS: BP 124/78
== END 2020-12-10 02:27 | disposition home or self-care (01) ==
LOC: EMS 22:18
DX: R10.9 Unspecified abdominal pain (principal); M79.10 Myalgia, unspecified site; R51.9 Headache, unspecified; F31.9 Bipolar disorder, unspecified; F20.9 Schizophrenia, unspecified; F17.210 Nicotine dependence, cigarettes, uncomplicated; F19.90 Other psychoactive substance use, unspecified, uncomplicated; Z59.0 Homelessness
CPT/HCPCS: 80053; 83690; 85025; 99285

== ENCOUNTER 2024-12-15 19:34 | Emergency (ER) | payer MEDICAID, OTHER ==
[~2024-12-15] VITALS: Ht 170.2 cm; Wt 74.0 kg
[~2024-12-15 19:34] MED LIST changes: +BENZ-247 PO; -BENZ1TAB10 PO; -CHOL100018 PO; +CHOL25TA4 PO; -FERR-89 PO; +FERR325T27 PO
[2024-12-15 19:44] VITALS: BP 149/100; PULSE 88; RESP 18; TEMP 98.2; O2SAT 98
== END 2024-12-15 20:11 | disposition home or self-care (01) ==
LOC: EMS 19:34
DX: F15.10 Other stimulant abuse, uncomplicated (principal); I10 Essential (primary) hypertension; F20.9 Schizophrenia, unspecified; Z59.00 Homelessness unspecified; Z79.899 Other long term (current) drug therapy
CPT/HCPCS: 99283; Z7502

== ENCOUNTER 2025-01-21 17:24 | Emergency (ER) | payer MEDICAID, OTHER, SELFPAY ==
[~2025-01-21] VITALS: Ht 175.3 cm; Wt 75.0 kg
[2025-01-21] MEDS ORDERED: HYDR12.54 PO (17:35)
[2025-01-21] MEDS ORDERED: AMLO5TAB66 PO (17:35)
[2025-01-21 18:11] LABS: PLATELET COUNT (AUTO) 386 K/uL (150-450); RED BLOOD CELL COUNT(AUTO) 4.09 MIL/uL (4.50-5.90); RED CELL DISTRIBUTION WIDTH 19.3 % (11.5-14.5); WHITE BLOOD COUNT (AUTO) 5.9 K/uL (4.5-11.0)
[2025-01-21 18:17] LABS: CALCIUM, TOTAL 8.6 mg/dL (8.8-10.5); CREATININE 0.86 mg/dL (0.60-1.30); GLOMERULAR FILTR. RATE CALC > 60 mL/min (>60); GLUCOSE,RANDOM 127 mg/dL (70-110); SODIUM SERUM 141 mmol/L (136-145); UREA NITROGEN, BLOOD 23 mg/dL (7-18)
[2025-01-21 18:23] LABS: ASPARTATE AMINOTRANSFERASE 26.0 U/L (15-37); TOTAL PROTEIN, SERUM 6.6 g/dL (6.4-8.2)
[2025-01-21 18:28] LABS: TROPONIN I-HIGH SENSITIVITY 6 ng/L (<76)
[2025-01-21 22:21] LABS: COVID AG,FIA SOURCE NPH
[2025-01-21 22:25] LABS: PH,URINE DRUG SCREEN 7.0 (5.0-8.0)
[2025-01-21 22:26] LABS: SARS-COV2 (COVID) ANTIGEN,FIA Negative (Negative)
[2025-01-21 22:29] LABS: ALCOHOL, URINE DRUG SCREEN NEGATIVE (NEGATIVE); AMPHET/METH SCREEN,URINE NEGATIVE (NEGATIVE); BARBITURATE SCREEN, URINE NEGATIVE (NEGATIVE); CANNABINOID SCREEN,URINE NEGATIVE (NEGATIVE); COCAINE SCREEN,URINE NEGATIVE (NEGATIVE); METHADONE SCREEN, URINE NEGATIVE (NEGATIVE)
[2025-01-21 23:30] VITALS: BP 131/74; PULSE 77; RESP 18; TEMP 97.3; O2SAT 100
== END 2025-01-22 01:24 | disposition home or self-care (01) ==
LOC: EMS 17:24
DX: M79.642 Pain in left hand (principal); M79.641 Pain in right hand; F15.90 Other stimulant use, unspecified, uncomplicated; I10 Essential (primary) hypertension; F20.9 Schizophrenia, unspecified; Z59.00 Homelessness unspecified; Z79.899 Other long term (current) drug therapy
CPT/HCPCS: 99285; 71045; 87426; 80048; 80076; 83880; 84484; 85025; 36415; 73130 ×2; 93005; 80307; G0480

== ENCOUNTER 2025-01-25 04:40 | Emergency (ER) | payer OTHER ==
[~2025-01-25] VITALS: Ht 175.3 cm; Wt 63.6 kg
[~2025-01-25 04:40] MED LIST changes: +AMLO5TAB66 PO; -BENZ-247 PO; -CHOL25TA4 PO; -FERR325T27 PO; +HYDR12.54 PO; -MULT-1204 PO; -RISP2TAB45 PO
[2025-01-25 04:44] VITALS: BP 158/98; PULSE 93; RESP 16; TEMP 98.1; O2SAT 97
== END 2025-01-25 06:30 | disposition home or self-care (01) ==
LOC: EMS 04:40
DX: I10 Essential (primary) hypertension (principal); F20.9 Schizophrenia, unspecified; Z59.00 Homelessness unspecified; Z79.899 Other long term (current) drug therapy
CPT/HCPCS: 99283; Z7502